=== PATIENT | female | born 1990 | race Caucasian/White ===

== ENCOUNTER 2018-01-11 18:02 | Emergency (ER) | payer SELFPAY ==
[2018-01-11 18:06] VITALS: BP 138/76; PULSE 84; RESP 20; TEMP 37.1; O2SAT 98; BMI 21.9
[2018-01-11 18:40] VITALS: BP 129/66; PULSE 72; RESP 18; TEMP 37; O2SAT 100; BMI 21.9
--- NOTE | 2018-01-11 18:50 | HMH.EDUTC ---
[facility] [place] Clinical Impression: Pain, dental, Dental infection Disposition: Home, Self-Care Condition on Discharge: Good Instructions: Tooth Abscess, Tooth Decay, DI for Dental Pain Additional Instructions: Take medication as prescribed Follow up with family doctor FOllow up with ENT as advised in clinic today FOllow up with dentist for further treatment and evaluation Over the counter Motrin or Tylenol as needed for fever or pain Warm compresses and dental balls may help with pain Prescriptions: Penicillin V Potassium 500 mg PO Q6H #40 tab Referrals: Cristino Dias MD [Staff Physician] - Time of Disposition: 19:03 Medical Decision Making - Medical Records Medical records reviewed: Yes: I reviewed the patient's medical records. Vital Signs: 01/11/18 18:06 01/11/18 18:40 Temperature 98.7 F 98.6 F Temperature Source Temporal Artery Scan Temporal Artery Scan Pulse Rate [Right Radial] 84 72 Respiratory Rate 20 18 Blood Pressure [Right Arm] 138/76 129/66 Blood Pressure Mean [Right Arm] 96 87 Blood Pressure Position [Right Arm] Sitting 02 Sat by Pulse Oximetry 98 100 Oxygen Delivery Method Room Air - Burak Inquiry Pt receiving controlled substance: No Burak was queried for this patient: No [facility] [place] HPI - General Stated complaint: Tooth/Ear/Sinus Pain and Migraine Mode of Arrival: Family Vehicle Source of Information: Patient Limitations: No Limitations Description of Symptoms (Recalled from Triage Doc. by RN): PT C/O TOOTHACHE THATS CAUSING EAR PAIN AND A MIGRAINE FOR A WEEK. HEENT Symptoms (Recalled from RN notes): Yes (TOOTHACHE, EAR ACHE, MIGRAINE) Resp Symptoms (Recalled from RN notes): No Skin Symptoms (Recalled from RN notes): No MS Symptoms (Recalled from RN notes): No Functional Status (Recalled from RN notes): NA - History of Present Illness Provider Complaint: Patient state that she has been having some pain and swelling in her gum area on the right upper back tooth State that pain has been coming and going for about a week now State that pain is bad at times and it radiates up into her her and makes her ear and head hurt State that she thinks the tooth may be getting abcessed so she came in to get checked out States that she also has a hole in her septum that she wants to have looked at where she used cocaine habitually when she was younger - Related Data Previous Rx's Medication Instructions Recorded Penicillin V Potassium 500 mg PO Q6H #40 tab 01/11/18 Allergies Allergy/AdvReac Type Severity Reaction Status Date / Time No Known Allergies Allergy Verified 01/11/18 18:56 - Worker's Comp Is this a Worker's Comp case?: No [facility] History I have reviewed the patient's past medical history: Yes Medical History: Denies:: Cancer, Diabetes Mellitus Type 1, Diabetes Mellitus Type 2, MRSA Amputation: No Fractures: No - Social History Smoking Status: Current every day smoker Tobacco Type: cigarettes Alcohol Intake: current Alcohol Intake Frequency:: 0-2 drinks per day Substance Use Type: crack/cocaine - Psychiatric History Expresses thoughts of harming self/others: None Suicide Plan Description: No Plan ROS Obtained: Yes All systems reviewed & no additional complaints - ENT Ears, Nose, Mouth, and Throat: Reports dental pain Physical Exam - General General appearance: alert, in no apparent distress - Expanded ENT Exam Nose exam: Present: other 1 - Dental Tenderness, Other (decay, swelling/redness in gums, dental abcess) - Chest Chest inspection: Present: normal inspection, symmetric chest wall rise. Absent: tenderness - Respiratory Respiratory exam: Present: normal lung sounds bilaterally - Cardiovascular Cardiovascular exam: Present: regular rate, normal rhythm. Absent: JVD - Neurological Exam Neurological exam: Present: alert, oriented X3
--- NOTE | 2018-01-11 18:53 | ED_ITS ---
[facility] [place] Disposition Clinical Impression: Pain, dental, Dental infection Disposition: Home, Self-Care Condition on Discharge: Good Instructions: Tooth Abscess, Tooth Decay, DI for Dental Pain Additional Instructions: Take medication as prescribed Follow up with family doctor FOllow up with ENT as advised in clinic today FOllow up with dentist for further treatment and evaluation Over the counter Motrin or Tylenol as needed for fever or pain Warm compresses and dental balls may help with pain Prescriptions: Penicillin V Potassium 500 mg PO Q6H #40 tab Referrals: Cristino Dias MD [Staff Physician] - Time of Disposition: 19:03 Medical Decision Making - Medical Records Medical records reviewed: Yes: I reviewed the patient's medical records. Vital Signs: 01/11/18 18:06 01/11/18 18:40 Temperature 98.7 F 98.6 F Temperature Source Temporal Artery Scan Temporal Artery Scan Pulse Rate [Right Radial] 84 72 Respiratory Rate 20 18 Blood Pressure [Right Arm] 138/76 129/66 Blood Pressure Mean [Right Arm] 96 87 Blood Pressure Position [Right Arm] Sitting 02 Sat by Pulse Oximetry 98 100 Oxygen Delivery Method Room Air - Burak Inquiry Pt receiving controlled substance: No Burak was queried for this patient: No [facility] [place] HPI - General Stated complaint: Tooth/Ear/Sinus Pain and Migraine Mode of Arrival: Family Vehicle Source of Information: Patient Limitations: No Limitations Description of Symptoms (Recalled from Triage Doc. by RN): PT C/O TOOTHACHE THATS CAUSING EAR PAIN AND A MIGRAINE FOR A WEEK. HEENT Symptoms (Recalled from RN notes): Yes (TOOTHACHE, EAR ACHE, MIGRAINE) Resp Symptoms (Recalled from RN notes): No Skin Symptoms (Recalled from RN notes): No MS Symptoms (Recalled from RN notes): No Functional Status (Recalled from RN notes): NA - History of Present Illness Provider Complaint: Patient state that she has been having some pain and swelling in her gum area on the right upper back tooth State that pain has been coming and going for about a week now State that pain is bad at times and it radiates up into her her and makes her ear and head hurt State that she thinks the tooth may be getting abcessed so she came in to get checked out States that she also has a hole in her septum that she wants to have looked at where she used cocaine habitually when she was younger - Related Data Previous Rx's Medication Instructions Recorded Penicillin V Potassium 500 mg PO Q6H #40 tab 01/11/18 Allergies Allergy/AdvReac Type Severity Reaction Status Date / Time No Known Allergies Allergy Verified 01/11/18 18:56 - Worker's Comp Is this a Worker's Comp case?: No [facility] History I have reviewed the patient's past medical history: Yes Medical History: Denies:: Cancer, Diabetes Mellitus Type 1, Diabetes Mellitus Type 2, MRSA Amputation: No Fractures: No - Social History Smoking Status: Current every day smoker Tobacco Type: cigarettes Alcohol Intake: current Alcohol Intake Frequency:: 0-2 drinks per day Substance Use Type: crack/cocaine - Psychiatric History Expresses thoughts of harming self/others: None Suicide Plan Description: No Plan ROS Obtained: Yes All systems reviewed & no additional complaints - ENT Ears, Nose, Mouth, and Throat: Reports dental pain Physical Exam - General General appearance: alert, in
[2018-01-11 19:24] VITALS: BP 120/67; PULSE 73; RESP 18; TEMP 36.7
== END 2018-01-11 19:26 | disposition home or self-care (01) ==
PROVIDERS: Emergency Provider Nurse Practitioner
DX: K04.7 Periapical abscess without sinus (principal); F17.210 Nicotine dependence, cigarettes, uncomplicated; F14.10 Cocaine abuse, uncomplicated
CPT/HCPCS: 99202

== ENCOUNTER 2018-01-31 12:47 | Emergency (ER) | payer SELFPAY ==
[2018-01-31 13:03] VITALS: BP 130/82; PULSE 80; RESP 20; TEMP 37.1; O2SAT 100; BMI 23.1
--- NOTE | 2018-01-31 13:21 | HMH.EDUTC ---
[facility] – [place] Disposition Clinical Impression: URI (upper respiratory infection) Qualifiers: URI type: unspecified URI Qualified Code(s): J06.9 - Acute upper respiratory infection, unspecified Disposition: Home, Self-Care Condition on Discharge: Good Instructions: DI for Cough -- Adult, Sore Throat Additional Instructions: * Monitor Temp. Tylenol and/or Ibuprofen as needed. ER if fever is no less than 101 despite alternating Tylenol and Ibuprofen * Encourage fluids, water, Gatorade, powerade, pedialyte if /toddler/or child * Warm salt water gargles for throat irritation *Warm fluids *Sore throat lozenges *Sleep elevated *humidifier or vaporizer Lots of rest Increase fluids, water, Gatorade, powerade *Flonase 2 sprays each nostril daily but may take 2-3 days to notice improvement with it *Bromfed may cause drowsiness. Know how it effect you or your child. Before driving, caring for small children or sending your child to school *Your throat swab was sent to lab for culture. Those results area typically sent to your primary care physician. Be sure to follow up in 2-3 days if no improvement so they can review those results and treat if necessary If you dont have primary care I recommend you get one, but in the mean time you will have to return to a walk in clinic Follow up IMMEDIATELY for new or worsening of symptoms OR no noticeable improvement over the next 48-72 hours. 911 immediately for any life threatening symptoms such as chest pain or difficulty breathing Prescriptions: Brompheniramine/Pseudoephed/Dm [Bromfed DM Cough Syrup 5mL] 10 ml PO Q4HP PRN #350 ml PRN Reason: Cough Albuterol Sulfate [Albuterol HFA Inhaler] 2 puffs IH Q6HP PRN #1 inh PRN Reason: Shortness Of Breath Or Wheezing Azithromycin [Z-Theron 250mg Tab] 250 mg PO UD DOSE PK #6 tab predniSONE [Prednisone 5mg Tab Dose-Pack] 5 mg PO UD DOSE PK #21 pack Medical Decision Making - Medical Records Medical records reviewed: Yes: I reviewed the patient's medical records. - Burak Inquiry Pt receiving controlled substance: No Burak was queried for this patient: No Vital Signs: 01/31/18 13:03 Temperature 98.7 F Temperature Source Temporal Artery Scan Pulse Rate [Right] 80 Respiratory Rate 20 Blood Pressure [Right Arm] 130/82 Blood Pressure Mean [Right Arm] 98 Blood Pressure Source [Right Arm] Manual Cuff/ Doppler Blood Pressure Position [Right Arm] Sitting 02 Sat by Pulse Oximetry 100 Oxygen Delivery Method Room Air - Reevaluation(s) Time: 13:37 Reevaluation #1: Patient states that she has been out of her Klonopin for about 2 months and wanted to see if we would write a refill until she found family doctor Patient advised that Klonopin is a controlled substance and that at this time I am unable to write prescription for controlled substance and they need to be prescribed by fmaily doctor for monitoring of doseage but I will supply her with a list of family doctors accepting patients and recommend that she call and try to get in to see one of them Also she may also check at the local [facility] and see if they may be able to have psychologist talk with her and discuss treatment [facility] [place] HPI - General Stated complaint: poss bronchitis Time Seen by Provider: 01/31/18 13:21 Mode of Arrival: Ambulatory Source of Information: Patient Limitations: No Limitations Description of Symptoms (Recalled from Triage Doc. by RN): COUGH X1 WK HEENT Symptoms (Recalled from RN notes): Yes Resp Symptoms (Recalled from RN notes): No Skin Symptoms (Recalled from RN notes): No MS Symptoms (Recalled from RN notes): No Functional Status (Recalled from RN notes): N - History of Present Illness Provider Complaint: Patient state that she has been having cough, nasal congestion, sore throat and low grade fever for the last several days State that she has a history of bronchitis and feels like she may have it again States that she is also out of her nerve medication Klonopin and w
--- NOTE | 2018-01-31 13:34 | ED_ITS ---
[facility] [place] Clinical Impression: URI (upper respiratory infection) Qualifiers: URI type: unspecified URI Qualified Code(s): J06.9 - Acute upper respiratory infection, unspecified Disposition: Home, Self-Care Condition on Discharge: Good Instructions: DI for Cough -- Adult, Sore Throat Additional Instructions: * Monitor Temp. Tylenol and/or Ibuprofen as needed. ER if fever is no less than 101 despite alternating Tylenol and Ibuprofen * Encourage fluids, water, Gatorade, powerade, pedialyte if /toddler/or child * Warm salt water gargles for throat irritation *Warm fluids *Sore throat lozenges *Sleep elevated *humidifier or vaporizer Lots of rest Increase fluids, water, Gatorade, powerade *Flonase 2 sprays each nostril daily but may take 2-3 days to notice improvement with it *Bromfed may cause drowsiness. Know how it effect you or your child. Before driving, caring for small children or sending your child to school *Your throat swab was sent to lab for culture. Those results area typically sent to your primary care physician. Be sure to follow up in 2-3 days if no improvement so they can review those results and treat if necessary If you don? t have primary care I recommend you get one, but in the mean time you will have to return to a walk in clinic Follow up IMMEDIATELY for new or worsening of symptoms OR no noticeable improvement over the next 48-72 hours. 911 immediately for any life threatening symptoms such as chest pain or difficulty breathing Prescriptions: Brompheniramine/Pseudoephed/Dm [Bromfed DM Cough Syrup 5mL] 10 ml PO Q4HP PRN # 350 ml PRN Reason: Cough Albuterol Sulfate [Albuterol HFA Inhaler] 2 puffs IH Q6HP PRN #1 inh PRN Reason: Shortness Of Breath Or Wheezing Azithromycin [Z-Theron 250mg Tab] 250 mg PO UD DOSE PK #6 tab predniSONE [Prednisone 5mg Tab Dose-Pack] 5 mg PO UD DOSE PK #21 pack Medical Decision Making - Medical Records Medical records reviewed: Yes: I reviewed the patient's medical records. - Burak Inquiry Pt receiving controlled substance: No Burak was queried for this patient: No Vital Signs: 01/31/18 13:03 Temperature 98.7 F Temperature Source Temporal Artery Scan Pulse Rate [Right] 80 Respiratory Rate 20 Blood Pressure [Right Arm] 130/82 Blood Pressure Mean [Right Arm] 98 Blood Pressure Source [Right Arm] Manual Cuff/ Doppler Blood Pressure Position [Right Arm] Sitting 02 Sat by Pulse Oximetry 100 Oxygen Delivery Method Room Air - Reevaluation(s) Time: 13:37 Reevaluation #1: Patient states that she has been out of her Klonopin for about 2 months and wanted to see if we would write a refill until she found family doctor Patient advised that Klonopin is a controlled substance and that at this time I am unable to write prescription for controlled substance and they need to be prescribed by fmaily doctor for monitoring of doseage but I will supply her with a list of family doctors accepting patients and recommend that she call and try to get in to see one of them Also she may also check at the local [facility] and see if they may be able to have psychologist talk with her and discuss treatment [facility] [place] - General Stated complaint: poss bronchitis Time Seen by Provider: 01/31/18 13:21 Mode of Arrival: Ambulatory Source of Information: Patient Limitations: No Limitations Description of Symptoms (Recalled from Triage Doc. by RN): COUGH X1 WK HEENT Symptoms (Recalled from RN notes): Yes Resp Symptoms (Rec
[2018-01-31 13:38] VITALS: BP 130/82; PULSE 80; RESP 20; TEMP 37.1
== END 2018-01-31 13:51 | disposition home or self-care (01) ==
PROVIDERS: Emergency Provider Nurse Practitioner
DX: J06.9 Acute upper respiratory infection, unspecified (principal); F41.8 Other specified anxiety disorders
CPT/HCPCS: 99201